=== PATIENT | male | born 1975 | race Caucasian/White ===

== ENCOUNTER 2019-05-31 11:54 | Emergency (ER) | payer MEDICAID, OTHER ==
[~2019-05-31] VITALS: Ht 188 cm; Wt 106.8 kg
[~2019-05-31 11:54] MED LIST: CYCL-1 PO; KETO10TA2 PO
[2019-05-31 12:43] LABS: BASOPHILS # (AUTO) 0.1 X10'3 (0-0.2); BASOPHILS % (AUTO) 0.5 % (0-1); EOSINOPHILS % (AUTO) 0.3 % (0-6); HEMATOCRIT 47.8 % (42.0-52.0); HEMOGLOBIN 16.2 g/dl (14.0-17.9); LYMPHOCYTES # (AUTO) 2.2 X10'3 (1.1-4.8); LYMPHOCYTES % (AUTO) 16.6 % (21-51); MEAN CORPUSCULAR HEMOGLOBIN 30.2 PG (27.0-31.0); MEAN CORPUSCULAR HGB CONC 33.9 g/dL (33.0-36.5); MEAN PLATELET VOLUME 8.1 FL (7.4-10.4); MONOCYTES # (AUTO) 0.7 X10'3 (0-0.9); MONOCYTES % (AUTO) 5.4 % (2-12); NEUTROPHILS % (AUTO) 77.2 % (42-75); PLATELET COUNT 281 X10'3 (140-440); RED BLOOD COUNT 5.37 X10'6 (4.70-6.10); RED CELL DISTRIBUTION WIDTH 13.4 % (11.5-14.5)
[2019-05-31 12:53] LABS: ALANINE AMINOTRANSFERASE 28 U/L (12-78); ALBUMIN 4.1 G/DL (3.4-5.0); ALKALINE PHOSPHATASE 54 IU/L (46-116); ANION GAP 5 (8-16); ASPARTATE AMINO TRANSFERASE 19 U/L (10-37); BILIRUBIN,TOTAL 0.4 MG/DL (0.1-1.0); BLOOD UREA NITROGEN 14 MG/DL (7-18); BUN/CREATININE RATIO 12.5 (5.4-32.0); CALCIUM 9.1 MG/DL (8.5-10.1); CHLORIDE 105 MMOL/L (99-107); CREATININE 1.12 MG/DL (0.60-1.10); GLUCOSE 86 MG/DL (70-104); POTASSIUM 4.5 MMOL/L (3.5-5.1); SODIUM 138 MMOL/L (135-145); TOTAL CARBON DIOXIDE 28.3 MMOL/L (24-32); TOTAL PROTEIN 8.3 G/DL (6.4-8.2); eGFR 71 ML/MIN
[2019-05-31 15:05] VITALS: BP 127/92
== END 2019-05-31 16:25 | disposition home or self-care (01) ==
LOC: ER 11:55
DX: R55 Syncope and collapse (principal); R07.89 Other chest pain; F17.200 Nicotine dependence, unspecified, uncomplicated; F15.90 Other stimulant use, unspecified, uncomplicated; Z79.899 Other long term (current) drug therapy
CPT/HCPCS: 36415; 71045; 80053; 84484; 85025; 93005; 99285

== ENCOUNTER 2020-01-01 19:02 | Emergency (ER) | payer MEDICAID, OTHER ==
[~2020-01-01] VITALS: Ht 188 cm; Wt 106.8 kg
[2020-01-01 19:09] VITALS: BP 115/71
== END 2020-01-01 20:33 | disposition home or self-care (01) ==
LOC: ER 19:02
DX: J06.9 Acute upper respiratory infection, unspecified (principal); Z20.828 Contact with and (suspected) exposure to other viral communicable diseases; F17.200 Nicotine dependence, unspecified, uncomplicated; F15.90 Other stimulant use, unspecified, uncomplicated; Z79.899 Other long term (current) drug therapy
CPT/HCPCS: 36415; 87635; 99283

== ENCOUNTER 2021-06-25 23:09 | Emergency (ER) | payer OTHER, SELFPAY ==
[~2021-06-25] VITALS: Ht 188 cm; Wt 98.8 kg
[2021-06-25] MEDS ORDERED: LIDOcaine 1% 30ml preserv. free vial IJ ONE (23:35)
[2021-06-25] MEDS ORDERED: TETanus/Pertussis (Acell)/Diphther VAC/PF (Tdap-Adult) 0.5ml syringe IMVAC ONE (23:35)
--- NOTE | 2021-06-26 00:05 | NUR ---
pt presents to the ed tx area with c/o laceration to the left thumb; the pt denies pain; the pt states he tried to scoop up broken glass from the floor, when the laceration occurred; the pt states he has not had a tetanus shot, and his only vaccine is covid; the pt is a/o, nad, skin w/d, with an approximate length of 1/2"; the lac is debride, and irrigated, awaiting
[2021-06-26 00:06] VITALS: BP 136/97
--- NOTE | 2021-06-26 00:18 | NUR ---
at prepping pt for suture
[2021-06-26] MEDS ORDERED: CEPH-585 PO (00:36)
== END 2021-06-26 00:59 | disposition home or self-care (01) ==
LOC: ER 23:09
DX: S61.012A Laceration without foreign body of left thumb without damage to nail, initial encounter (principal); R20.0 Anesthesia of skin; F17.200 Nicotine dependence, unspecified, uncomplicated; F15.90 Other stimulant use, unspecified, uncomplicated; Z79.2 Long term (current) use of antibiotics; Z79.899 Other long term (current) drug therapy; Z20.3 Contact with and (suspected) exposure to rabies; X58.XXXA Exposure to other specified factors, initial encounter; Y93.89 Activity, other specified; Y92.89 Other specified places as the place of occurrence of the external cause; Y99.8 Other external cause status
CPT/HCPCS: 12001; 73140; 90471; 90715; 99283; J3490

== ENCOUNTER 2024-07-08 06:43 | Day surgery (SDC) | payer OTHER ==
[2024-07-02 15:20] LABS: BASOPHILS # (AUTO) 0.1 X10'3 (0-0.2); BASOPHILS % (AUTO) 0.8 % (0-1); EOSINOPHILS # (AUTO) 0.3 X10'3 (0-0.9); EOSINOPHILS % (AUTO) 2.9 % (0-6); LYMPHOCYTES # (AUTO) 2.8 X10'3 (1.1-4.8); LYMPHOCYTES % (AUTO) 32.2 % (21-51); MEAN CORPUSCULAR HEMOGLOBIN 30.6 PG (27.0-31.0); MEAN CORPUSCULAR HGB CONC 33.8 g/dL (33.0-36.5); MEAN CORPUSCULAR VOLUME 90.4 FL (78-98); MEAN PLATELET VOLUME 8.1 FL (7.4-10.4); MONOCYTES # (AUTO) 0.5 X10'3 (0-0.9); MONOCYTES % (AUTO) 5.6 % (2-12); NEUTROPHILS % (AUTO) 58.5 % (42-75); PRE OP HEMATOCRIT 46.2 % (42.0-52.0); PRE OP HEMOGLOBIN 15.6 g/dL (14.0-17.9); PRE OP PLATELET COUNT 300 X10'3 (140-440); PRE OP WHITE BLOOD COUNT 8.6 10'3 (4.8-10.8); RED BLOOD COUNT 5.11 X10'6 (4.70-6.10); RED CELL DISTRIBUTION WIDTH 13.2 % (11.5-14.5)
[2024-07-02 15:32] LABS: ALBUMIN 3.8 G/DL (3.4-5.0); ALBUMIN/GLOBULIN RATIO 0.8 (1.1-1.5); ALKALINE PHOSPHATASE 65 IU/L (46-116); BLOOD UREA NITROGEN 11 MG/DL (7-18); BUN/CREATININE RATIO 11.3 (10.0-20.0); CALCIUM 8.7 MG/DL (8.5-10.1); CHLORIDE 104 MMOL/L (99-107); CREATININE 0.97 MG/DL (0.60-1.10); PRE OP ALT 25 U/L (30-65); PRE OP ANION GAP 6 (8-16); PRE OP AST 12 U/L (10-37); PRE OP BILIRUB, TOTAL 0.4 MG/DL (0.0-1.0); PRE OP GLUCOSE 95 MG/DL (70-104); PRE OP POTASSIUM 4.1 MMOL/L (3.4-5.1); PRE OP SODIUM 140 MMOL/L (135-145); TOTAL CARBON DIOXIDE 29.7 MMOL/L (24-32); TOTAL PROTEIN 8.4 G/DL (6.4-8.2); eGFR 82 ML/MIN
[2024-07-08] VITALS (11 sets, daily range): BP systolic 110–154; BP diastolic 75–106; PULSE 63–88; RESP 8–16; TEMP 97.8; O2SAT 91–100
[~2024-07-08] VITALS: Ht 188 cm; Wt 102.1 kg
[~2024-07-08 06:43] MED LIST changes: -CYCL-1 PO; -KETO10TA2 PO; +NO HOME MEDS; +famotidine 20mg tablet PO ONE; +ringers solution, lacted 1,000 ML IV SCH
[2024-07-08] MEDS: ceFAZolin 2gm in dextrose, iso 50 ML IV ONE (07:49)
[2024-07-08] MEDS ORDERED: morphine 4 MG/ML inj SYRINge IV PRN (07:55)
[2024-07-08] MEDS ORDERED: meperidine/PF 25mg/ml syringe IV PRN ×3 (07:55)
[2024-07-08] MEDS ORDERED: proCHLORperazine 10 MG/2 ml inj IV PRN (07:55)
[2024-07-08] MEDS ORDERED: ondansetron/PF 4mg/2ml inj IV PRN (07:55)
[2024-07-08] MEDS ORDERED: ringers solution, lacted 1,000 ML IV SCH (07:55)
[2024-07-08] MEDS ORDERED: morphine 2 MG/ML inj. syringe IV PRN (07:55)
[2024-07-08] MEDS ORDERED: BUPIVAcaine 2.5mg/ml inj 50ml vial (contains preservative) ONE (08:59)
[2024-07-08] MEDS ORDERED: LIDOcaine 1% 30ml preserv. free vial ONE (08:59)
[2024-07-08] MEDS ORDERED: sevoflurane 250ml liquid IH ONE (09:44)
[2024-07-08] MEDS: BUPIVAcaine/PF 2.5 mg/ml (0.25%) 30ml vial IJ ONE (09:45)
[2024-07-08] MEDS ORDERED: midazolam 1 mg/ML 2ml injection ONE (09:56)
[2024-07-08] MEDS ORDERED: fentaNYL /PF 50mcg/ml 5ml ampule ONE (09:58)
[2024-07-08] MEDS ORDERED: ondansetron/PF 4mg/2ml inj ONE (10:13)
[2024-07-08] MEDS ORDERED: propofol inj 20 ML IV ONE (10:14)
[2024-07-08] MEDS ORDERED: dexamethasone sod phosphate 4mg/ml inj. ONE (10:14)
[2024-07-08] MEDS ORDERED: rocuronium 10mg/ml inj IV ONE (10:14)
[2024-07-08] MEDS ORDERED: LIDOcaine 2% (20mg/ml) 5ml vial ONE (10:14)
[2024-07-08] MEDS ORDERED: neostigmine methylsulfate 1 MG/ML 10ml vial ONE (11:42)
[2024-07-08] MEDS ORDERED: glycopyrrolate 0.2mg/ml inj ONE (11:42)
[2024-07-08] MEDS ORDERED: meperidine/PF 100mg/ml syringe IV PRN ×2 (11:49→11:50)
[2024-07-08] MEDS: meperidine/PF 100mg/ml syringe IV PRN (11:53)
[2024-07-08] MEDS: acetaminophen 1,000mg/100ml IV 100 ML IV PRN (12:25)
[2024-07-08] MEDS: HYDROcodone/acetaminophen 5mg/325mg tablet PO PRN (12:26)
== END 2024-07-08 15:06 | disposition home or self-care (01) ==
LOC: PAS 06:43
PROVIDERS: ATTEND Surgery
DX: K40.20 Bilateral inguinal hernia, without obstruction or gangrene, not specified as recurrent (principal); Z79.899 Other long term (current) drug therapy; F17.210 Nicotine dependence, cigarettes, uncomplicated
CPT/HCPCS: 36415; 49650; 80053; 82948; 85025; 93005; C1781; J0131; J0690; J1100; J2003; J2175; J2250; J2405; J2704; J2710; J3010; J3490; J7030; J7120; S2900; Z7506; Z7508; Z7512; A4215; A4618